=== PATIENT | male | born 1970 | race Caucasian/White ===

== ENCOUNTER 2018-12-08 16:12 | Emergency (ER) | payer OTHER ==
[~2018-12-08] VITALS: Ht 175.3 cm; Wt 70.3 kg
[~2018-12-08 16:12] MED LIST: ACET325 PO; ALBU90OI6 INH; AMOCLA875 PO; ANTOXYBENA LEFTEAR; ASPI81CH PO; ATOR20 PO; Bactrim Ds Tab1 EACH PO; CALCA500CH PO; CEPH500 PO; CLON1 PO; Cipro500 MG PO; Ciprodex Otic7.5 ML LEFTEAR; Clonazepam1 MG; DIPH50 PO; FLUO10 PO; GABA100; GABA300; GABA300 PO; GLIP10 PO; GLIP2.5ER PO; GLIP5 PO; HYDCOR1TO TOP; Haldol5 MG/1 ML IJ; IBUP400 PO; INSDET100 INJ; INSDET100 SC; METF500 PO; Metformin HCl1000 MG; NEBI5 PO; NICO21TP TOP; Neurontin 300300 MG PO; OXYC10TA19 PO; Omeprazole20 M1 PO; PHENY100ER PO; Pepcid40 MG PO; Prednisone20 MG PO; Ultram50 MG PO; XARELTO20 MG PO; ZIPR20 PO; ZIPR40 PO; ZIPR60 PO
[2018-12-08] MEDS ORDERED: GABA400 PO (16:38)
[2018-12-08] MEDS ORDERED: BUPR100 PO (16:38)
[2018-12-08] MEDS ORDERED: ATOR20 PO (16:39)
[2018-12-08] MEDS ORDERED: Bactrim Ds Tab1 EACH PO (16:53)
[2018-12-08] MEDS ORDERED: Mupirocin22 GM TOP (16:53)
[2018-12-08] MEDS ORDERED: CEPH500 PO (16:53)
== END 2018-12-08 17:03 | disposition home or self-care (01) ==
LOC: ER 16:12
DX: L02.416 Cutaneous abscess of left lower limb (principal); L03.116 Cellulitis of left lower limb; Z79.899 Other long term (current) drug therapy; Z79.4 Long term (current) use of insulin; E11.9 Type 2 diabetes mellitus without complications; F17.200 Nicotine dependence, unspecified, uncomplicated
CPT/HCPCS: 82947; 99283

== ENCOUNTER 2019-03-18 01:28 | Inpatient (IN) | payer OTHER ==
[~2019-03-18] VITALS: Ht 177.8 cm; Wt 71.2 kg
[~2019-03-18 01:28] MED LIST changes: +BUPR100 PO; +GABA400 PO; +Mupirocin22 GM TOP
[2019-03-18 02:04] LABS: BASOPHILS ABSOLUTE AUTO 0.05 K/mm3 (0.00-0.23); BASOPHILS PERCENT AUTO 0 % (0-2); EOSINOPHILS ABSOLUTE AUTO 0.21 K/mm3 (0.00-0.68); EOSINOPHILS PERCENT AUTO 2 % (0-6); Hematocrit 35.2 % (37.0-53.0); Hemoglobin 11.5 g/dL (13.5-17.5); IMMATURE GRAN ABSOLUTE AUTO 0.09 K/mm3 (0.00-0.10); IMMATURE GRAN PERCENT AUTO 1 % (0-1); LYMPHOCYTES ABSOLUTE AUTO 1.63 K/mm3 (0.84-5.20); LYMPHOCYTES PERCENT AUTO 12 % (21-46); MONOCYTES ABSOLUTE AUTO 1.07 K/mm3 (0.16-1.47); MONOCYTES PERCENT AUTO 8 % (4-13); Mean Corpuscular HGB 28.6 pg (26.0-34.0); Mean Corpuscular HGB Conc 32.7 g/dL (31.5-36.5); Mean Corpuscular Volume 88 fL (80-100); Mean Platelet Volume 8.5 fL (9.1-12.4); NEUTROPHILS ABSOLUTE AUTO 10.79 K/mm3 (1.96-9.15); NEUTROPHILS PERCENT AUTO 78 % (41-73); Platelet Count 602 K/mm3 (150-400); RDW Standard Deviation 48.6 fL (35.1-46.3); Red Blood Cell Count 4.02 M/mm3 (4.30-5.90); White Blood Cell Count 13.84 K/mm3 (4.00-11.30)
[2019-03-18 02:23] LABS: Alanine Aminotransfer (ALT/SGP 15 U/L (12-78); Albumin, Blood 2.5 g/dL (3.4-5.0); Albumin/Globulin Ratio 0.5 (0.8-1.8); Alk Phos 127 U/L (50-136); Anion Gap 7 mmol/L (6-16); Aspartate Aminotrans (AST/SGOT 7 U/L (12-37); Bilirubin, Total 0.2 mg/dL (0.1-1.0); Blood Urea Nitrogen 16 mg/dL (8-24); Bun/Creatinine Ratio 23.5 (12.0-20.0); CO2, Blood 30 mmol/L (21-32); Calcium, Blood 9.1 mg/dL (8.5-10.1); Chloride, Blood 97 mmol/L (98-108); Creatinine, Blood 0.68 mg/dL (0.60-1.20); Globulin, Blood 4.7 g/dL (2.2-4.0); Glomerular Filtration Rate >60 (60-); Glucose, Blood 260 mg/dL (70-99); Potassium, Blood 3.9 mmol/L (3.5-5.5); Sodium, Blood 134 mmol/L (136-145); Total Protein, Blood 7.2 g/dL (6.4-8.2)
[2019-03-18 02:26] LABS: Body Fluid Crystals NEG (NEGATIVE)
[2019-03-18 02:31] LABS: RBC Count, Synovial Fluid 10000 /mm3 (0-0)
[2019-03-18 02:39] LABS: WBC Count, Synovial Fluid 11706 /mm3 (0-180)
[2019-03-18 02:59] LABS: Lymphs, Synovial Fluid 2 % (0-15); Monocytes/Macrophages, Synovia 2 % (0-65); Neutrophils, Synovial Fluid 96 % (0-24)
[2019-03-18 03:00] LABS: Appearance, Synovial Fluid Hazy (Clear); Color, Synovial Fluid Yellow (None-P Yel)
[2019-03-18] MEDS ORDERED: ASPI81CH PO (14:54)
[2019-03-18] MEDS ORDERED: LISI5 PO (14:55)
[2019-03-18] MEDS ORDERED: GLIM2 PO (15:00)
[2019-03-18] MEDS ORDERED: CEPH500 PO (15:03)
[2019-03-18] MEDS ORDERED: OXYC5 PO (15:05)
--- NOTE | 2019-03-18 18:29 | NUR ---
SHIFT SUMMARY PATIENT RECIEVED AN I&D AT BEDSIDE. DRESSING WRAPPED BY DR. TROCNOSO. PATIENT HAS SLEPT ON AND OFF THIS SHIFT. MINIMAL COMPLAINTS OF PAIN. MEDICATED WITH PO TYLENOL. PATIENT ATE THE ENTIRITY OF HIS DINNER TONIGHT.
[2019-03-19 03:16] LABS: Vancomycin, Trough 15.2 ug/mL (5.0-10.0)
--- NOTE | 2019-03-19 03:57 | NUR ---
RESTING QUIETLY WITH INTERMITTENT AWAKENINGS. SAID AWAKENINGS INCLUDED COMPLAINTS OF PAIN, AND"HEARTBURN". PHOTOGRAPHIC SUPERVISOR MDS NOTIFIED, ORDERS OBTAINED FOR TUMS X 1, GIVEN. AND TRAMADOL 100 MG Q 8 HR PRN. MEDS GIVEN, MEDS EFECTIVE. CALL LIGHT IN REACH. IV ANTIBIOTICS INFUSING. DRESSING OF RIGHT ELBOW INTACT.
--- NOTE | 2019-03-19 16:45 | NUR ---
SHIFT SUMMARY- PT A/O. PT ARM VERY PAINFUL, MEDICATED PER AUG. DR TRONCOSO IN TO CHANGE DRESSING. NPO AFTER MIDNIGHT FOR POSS. PROCEDURE TOMORROW. PT REPORTED HEARTBURN AND REQUESTED TUMS. ORDER PLACED PER DR. PANDA.
--- NOTE | 2019-03-20 00:56 | NUR ---
PT CURRENTLY NOP FOR POTENTIAL I AND D OF RIGHT ARM IN THE AM. VOICED UNDERSTANDING. CALL LIGHT IN REACH.
--- NOTE | 2019-03-20 04:47 | NUR ---
NPO SINCE 0000 FOR ANOTHER I AND D IN THE OR TODAY. PAIN OF RIGHT ELBOW CONTINUES, HAVING RECEIVED ANALGESICS ORDERED - SEE MAR FOR DETAILS. ANTIBIOTICS CONTINUE. CALL LIGHT IN REACH.
[2019-03-20 04:52] LABS: BASOPHILS ABSOLUTE AUTO 0.04 K/mm3 (0.00-0.23); BASOPHILS PERCENT AUTO 0 % (0-2); EOSINOPHILS PERCENT AUTO 4 % (0-6); Hematocrit 37.5 % (37.0-53.0); Hemoglobin 12.1 g/dL (13.5-17.5); IMMATURE GRAN ABSOLUTE AUTO 0.08 K/mm3 (0.00-0.10); IMMATURE GRAN PERCENT AUTO 1 % (0-1); LYMPHOCYTES ABSOLUTE AUTO 1.69 K/mm3 (0.84-5.20); LYMPHOCYTES PERCENT AUTO 15 % (21-46); MONOCYTES ABSOLUTE AUTO 0.77 K/mm3 (0.16-1.47); MONOCYTES PERCENT AUTO 7 % (4-13); Mean Corpuscular HGB Conc 32.3 g/dL (31.5-36.5); Mean Corpuscular Volume 87 fL (80-100); Mean Platelet Volume 8.5 fL (9.1-12.4); NEUTROPHILS ABSOLUTE AUTO 8.27 K/mm3 (1.96-9.15); NEUTROPHILS PERCENT AUTO 74 % (41-73); Platelet Count 634 K/mm3 (150-400); RDW Coefficient Variation 14.8 % (11.7-14.2); RDW Standard Deviation 47.7 fL (35.1-46.3); Red Blood Cell Count 4.32 M/mm3 (4.30-5.90); White Blood Cell Count 11.25 K/mm3 (4.00-11.30)
[2019-03-20 05:15] LABS: Anion Gap 3 mmol/L (6-16); Blood Urea Nitrogen 22 mg/dL (8-24); Bun/Creatinine Ratio 30.5 (12.0-20.0); CO2, Blood 30 mmol/L (21-32); Calcium, Blood 8.5 mg/dL (8.5-10.1); Chloride, Blood 100 mmol/L (98-108); Creatinine, Blood 0.72 mg/dL (0.60-1.20); Glomerular Filtration Rate >60 (60-); Glucose, Blood 207 mg/dL (70-99); Potassium, Blood 4.3 mmol/L (3.5-5.5); Sodium, Blood 133 mmol/L (136-145)
--- NOTE | 2019-03-20 13:51 | NUR ---
Patient is lying in bed and alert. Patient immediately tells me about his medical issues and his social struggles (including homelessness at times). Patient tells me of the recent of his mom and step father. He gives me a life and family review. I also explore patient's islam beliefs. I listen empathically and provide pastoral chromosomal disorders counselor, grief support and prayer. Patient responds well and shows signs of restored brittney. I will continue to remian available to patient and family.
--- NOTE | 2019-03-20 14:41 | NUR ---
PT C/O LOW BLOOD SUGAR, CHECKED. IS 54. HONEY AND JUICE, SANDWICH GIVEN.
--- NOTE | 2019-03-20 17:39 | NUR ---
PT PAIN MANAGED TOLERABLY WITH AVAIL MEDS. HAS BEEN OUT TO SMOKE, BOTH TIMES RETURNS FEELS SOME LIGHT HEADED, STATED FELT NOT RIGHT. 14:30 CBG CHECK REVEALED 54. GIVEN HONEY, APPLE JUICE X2, SANDWICH. PT RECOVERED QUICKLY TO >90. VSS. SECOND TIME. CBG 109. REQUESTED PT STAY TO ROOM. AGREED. NO OTHER CONCERNS AT THIS TIME. BED IN LOW [id number], CALL LITE IN REACH, CALLS APPRIOP
--- NOTE | 2019-03-20 22:53 | NUR ---
DRESSING CHANGE DRESSING CHANGE TO R ELBOW I/D SITE. PRIOR DRESSING CAME LOOSE AND WAS "PULLING" CAUSING PT GREAT DEAL OF PAIN. DRSG CHANGE SITE NOW C/D/I.
--- NOTE | 2019-03-21 06:08 | NUR ---
SHIFT SUMMARY PT NPO SINCE MIDNIGHT FOR POSS I/D OF R ELBOW ABSCESS. REDRESSED SITE 2X PT IS ITCHING UNDER DRESSING CAUSING IT TO COME LOOSE. EDUCATED PT TO NOT ITCH DRESSING IT COULD CAUSE INTRODUCTION OF INFECTION. SITE IS C/D/I, APPEARS WNL. PO TRAMADOL GIVEN TWICE FOR PAIN, TYLENOL GIVEN ONCE. PT IS AMBULATORY AND GOES OUT TO SMOKE SEVERAL TIMES. WILL CONT TO MONITOR AND PROVIDE CARE UNTIL PRESUMED BY ONCOMING RN.
--- NOTE | 2019-03-21 07:20 | NUR ---
PT C/O PAIN, DISCUSSED WITH DR SARKAR. WILL MONITOR. WILL REVIEW MEDS. A/O. PENDING DR LOPEZ TO SEE ARM FOR POSS I&D THIS AM. PT NPO. H/R REG, NO MURMER NOTED. NO TELE. LUNGS WHEEZY T/O. RESP EASY, UNLABORED. ON R.A. BT X4 LAST BM 3 DAYS. VOIDS PER BATHROOM. INDEPENDANT IN ROOM. ALSO GOES OUT TO SMOKE REGULARLY. BED IN LOW POSITION, CALL LITE IN REACH. CALLS APPROP
--- NOTE | 2019-03-21 09:30 | NUR ---
DR SOTO IN ROOM. NO SURG TODAY. WILL REVIEW TOMORROW. POSS ORDER MRI.
--- NOTE | 2019-03-21 18:17 | NUR ---
PT JUST BEING TAKEN FOR MRI. REDIOLOGY TECH STATES WILL BE CHECKING EYES FIRST FOR SAFETY FOR MRI/ PT STATES PAIN MED WORKING MUCH BETTER TODAY. CHANGE HELPED. NO OTHER CONCERNS AT THIS TIME. BED IN LOW POSITION, RUDDY LITE IN REACH, CALLS APPROP. WALKS OUT TO SMOKE REGULARLY BETWEEN ANTIBOITICS.
--- NOTE | 2019-03-21 19:26 | NUR ---
DAY RN REPORTS PATIENT STILL OUT OF ROOM FOR MRI.
--- NOTE | 2019-03-21 19:44 | NUR ---
PATIENT BACK FROM MRI. REPORTS WANTS TO GO OUTSIDE AND REQUEST PAIN MED WHEN HE GETS BACK.
--- NOTE | 2019-03-21 21:46 | NUR ---
PATIENT WAS BACK IN ROOM AND IV ABX INFUSED AND MEDICATIONS GIVEN PER EMAR. PATIENT BACK OUTSIDE.
--- NOTE | 2019-03-21 22:48 | NUR ---
PATIENT IN ROOM AND REQUEST SHOWER. DEDICATED OWNER OPERATOR WILL SET UP SHOWER.
--- NOTE | 2019-03-22 03:07 | NUR ---
SHIFT SUMMARY PATIENT HAD NO ACUTE CHANGES OBSERVED. AXOX 3 AND INDEPENDENT GOING OUTSIDE TO SMOKE T/O THE SHIFT. PIV REMAINS INTACT. IV ABXS INFUSED. CBG 185. PERCOCET GIVEN PER EMAR FOR RIGHT ARM PAIN. DENIES SOB AND N/V. PATIENT PULLED ELBOW DRESSING CHANGE OFF X THREE WHEN TAKING JACKET OFF. DRESSING CHANGED C/D/I. PATIENT REQUESTED SHOWER, CLOTHES WASHED, AND PHONE CHARGE. ALL THREE COMPLETE. NPO AFTER MIDNIGHT. CALL LIGHT IN REACH. BED IN LOWEST POSITION. WILL CONTINUE TO MONITOR UNTIL DAY SHIFT NURSE ASSUMES CARE.
[2019-03-22 04:21] LABS: BASOPHILS ABSOLUTE AUTO 0.06 K/mm3 (0.00-0.23); BASOPHILS PERCENT AUTO 1 % (0-2); EOSINOPHILS PERCENT AUTO 4 % (0-6); Hemoglobin 12.1 g/dL (13.5-17.5); IMMATURE GRAN PERCENT AUTO 1 % (0-1); LYMPHOCYTES ABSOLUTE AUTO 1.96 K/mm3 (0.84-5.20); LYMPHOCYTES PERCENT AUTO 16 % (21-46); MONOCYTES PERCENT AUTO 6 % (4-13); Mean Corpuscular HGB 27.8 pg (26.0-34.0); Mean Corpuscular HGB Conc 31.8 g/dL (31.5-36.5); Mean Corpuscular Volume 87 fL (80-100); Mean Platelet Volume 8.3 fL (9.1-12.4); NEUTROPHILS ABSOLUTE AUTO 8.67 K/mm3 (1.96-9.15); NEUTROPHILS PERCENT AUTO 72 % (41-73); Platelet Count 762 K/mm3 (150-400); RDW Standard Deviation 48.4 fL (35.1-46.3); Red Blood Cell Count 4.36 M/mm3 (4.30-5.90); White Blood Cell Count 11.99 K/mm3 (4.00-11.30)
[2019-03-22 04:46] LABS: Anion Gap 4 mmol/L (6-16); Blood Urea Nitrogen 35 mg/dL (8-24); Bun/Creatinine Ratio 39.6 (12.0-20.0); CO2, Blood 31 mmol/L (21-32); Calcium, Blood 8.8 mg/dL (8.5-10.1); Chloride, Blood 100 mmol/L (98-108); Creatinine, Blood 0.88 mg/dL (0.60-1.20); Glomerular Filtration Rate >60 (60-); Glucose, Blood 125 mg/dL (70-99); Potassium, Blood 4.4 mmol/L (3.5-5.5); Sodium, Blood 135 mmol/L (136-145)
--- NOTE | 2019-03-22 08:08 | NUR ---
IV ANTIBIOTICS STOPPED PATIENT WANTS TO GO OUTSIDE TO SMOKE.
--- NOTE | 2019-03-22 08:33 | NUR ---
HOOKED UP TO ANTIBIOTICS AFTER RETURNING FROM OUTSIDE
--- NOTE | 2019-03-22 09:30 | NUR ---
OUTSIDE TO SMOKE
--- NOTE | 2019-03-22 09:54 | NUR ---
BACK FROM SMOKE
--- NOTE | 2019-03-22 13:42 | NUR ---
OUTSIDE FOR SMOKE
--- NOTE | 2019-03-22 13:50 | NUR ---
ALERT. ORIENTED. OUTSIDE TO SMOKE OFTEN. MEDICATED X ONE FOR PAIN THEN TO DAY SURGERY. WOUND RT ARM REWRAPPED X ONE. COOPERATIVE. LUNGS WHEEXEY TO COARSE T/O. ABRASIONS TO LEGS FROM "LOOSING PANTS AND RUNNING THRU THORNS". NO ACUTE CHANGES
--- NOTE | 2019-03-22 14:18 | NUR ---
AFTER PATIENT WALKS OUT FOR SMOKE, DAY SURGERY COMES UP TO GET PATIENT. THEY TAKE A GOWN AND GO TO GET PATIENT FOR SURGERY. NOTE SENT TO PHARMACY TO SEND NEXT 2 ANTIBIOTICS TO DAY SURGERY.
--- NOTE | 2019-03-22 15:25 | NUR ---
03/22/19 1525 Farzaneh Gupta PT RECIEVED SCHEDULED ANTIBIOTICS IN OR ORDERED.
--- NOTE | 2019-03-22 16:44 | NUR ---
REPORT TO [facility].
--- NOTE | 2019-03-22 17:39 | NUR ---
RECIEVED PT POST OP: PT IS DROWSY, BUT ORIENTED, VSS. ABLE TO DO ASSESSMENT AND ONE VITAL SIGN SET BUT THEN PT PERSISTANT ON GETTING UP, TRYING TO VOID, GETTING DRESSED, WANTING FOOD, AND WANTING TO GO OUT TO SMOKE. PT IS STILL DROWSY AND WAKING UP AND AT TIMES UNSTEADY ON FEET. PT ENCOURAGE TO SIT DOWN AND LET STAFF HELP WHICH HE REFUSED BLANTANTLY. THIS RN CONCERNED OF FALL AND EXTRA STAFF CALLED INTO ROOM. KIM, MARKETING MGR AT PT BEDSIDE AND CONVINCED PT TO SIT WHILE PUTTING ON UNDERWEAR INSTEAD OF STAND, THIS RN HELPED PT WITH PANTS AND NON SKID SOCKS. PT PROCEEDED TO PUT ON SHOES AND STATES THAT HE NEEDS TO GO OUT TO SMOKE. THIS RN ADVISED PT NOT TO DO THIS AND PAGE MADE TO DR. SARKAR TO MAKE AWARE. KIM KEITH, ABLE TO CONVINCE PT TO EAT SOME FOOD AND GET ANOTHER SET OF VITALS BEFORE PT LEFT UNIT WITH WHEELCAIR TO SMOKE. WILL AWAIT CALL FROM DR. SARKAR
--- NOTE | 2019-03-22 17:53 | NUR ---
PT LEFT UNIT PUSHING WHEELCHAIR AT 1750
--- NOTE | 2019-03-22 19:21 | NUR ---
SPOKE WITH DR. SARKAR CONCERNING PT NONCOMPLIANCE AT ABOUT 1815. WILL CTM PT STATUS
--- NOTE | 2019-03-22 19:23 | NUR ---
PT BACK TO ROOM AT ABOUT 1835, PT IS ROCKING BODY AND GROANING IN PAIN. PT GIVEN PAIN MEDS, SEE EMAR, AND ENCOURAGED TO ELEVATE R ARM AND REST. PT COMPLIANT SIT IN BED WITH ARM ELEVATED AND TO HAVE CBG CHECKED AND VITAL SIGNS TAKEN. PT ABLE TO VOID. MIYA WRAP AT SURGICAL SITE RE-WRAPED, PT CLAIMED IT WAS "TOO TIGHT", SITE NOW WNL. NO ACUTE SAFETY CONCERNS AT THIS TIME. REPORT GIVEN TO ELENA GODDARD RN.
[2019-03-23 04:33] LABS: BASOPHILS ABSOLUTE AUTO 0.02 K/mm3 (0.00-0.23); BASOPHILS PERCENT AUTO 0 % (0-2); EOSINOPHILS PERCENT AUTO 0 % (0-6); Hematocrit 33.4 % (37.0-53.0); Hemoglobin 10.7 g/dL (13.5-17.5); IMMATURE GRAN PERCENT AUTO 1 % (0-1); LYMPHOCYTES ABSOLUTE AUTO 0.99 K/mm3 (0.84-5.20); LYMPHOCYTES PERCENT AUTO 6 % (21-46); MONOCYTES ABSOLUTE AUTO 0.55 K/mm3 (0.16-1.47); MONOCYTES PERCENT AUTO 4 % (4-13); Mean Corpuscular HGB 28.2 pg (26.0-34.0); Mean Corpuscular Volume 88 fL (80-100); Mean Platelet Volume 8.6 fL (9.1-12.4); NEUTROPHILS ABSOLUTE AUTO 13.79 K/mm3 (1.96-9.15); NEUTROPHILS PERCENT AUTO 89 % (41-73); Platelet Count 772 K/mm3 (150-400); RDW Standard Deviation 48.9 fL (35.1-46.3); White Blood Cell Count 15.45 K/mm3 (4.00-11.30)
[2019-03-23 05:00] LABS: Anion Gap 6 mmol/L (6-16); Blood Urea Nitrogen 40 mg/dL (8-24); Bun/Creatinine Ratio 43.1 (12.0-20.0); CO2, Blood 29 mmol/L (21-32); Calcium, Blood 8.7 mg/dL (8.5-10.1); Chloride, Blood 94 mmol/L (98-108); Creatinine, Blood 0.93 mg/dL (0.60-1.20); Glomerular Filtration Rate >60 (60-); Glucose, Blood 450 mg/dL (70-99); Magnesium, Blood 2.1 mg/dL (1.6-2.4); Potassium, Blood 5.7 mmol/L (3.5-5.5); Sodium, Blood 129 mmol/L (136-145)
--- NOTE | 2019-03-23 05:41 | NUR ---
SHIFT SUMMARY LYING IN SEMI FOWLERS WITH EYES CLOSED. HAS BEEN AWAKE AND OUT OF ROOM TO GO SMOKE FOR MOST OF THE SHIFT. CONTINUED TO REQUEST THINGS TO EAT THROUGHOUT SHIFT. PT WAS GIVEN MULTIPLE SERVINGS OF SANDWICHES, COFFEE, COCOA (NO SUGAR ADDED VARIETY), SOUP, AND JELLO PER HIS REQUEST, STATED HE WAS STARVING. MEDICATED FOR PAIN X1 THIS SHIFT. ONCE PT WAS INFOMRED THAT THERE WOULD BE NO MORE FOOD SERVED TO HIM THIS SHIFT AROUND 4 AM HE THEN LAYED DOWN AND FELL ASLEEP. STATES HE WANTS TO GO HOME TODAY AND DIDN'T EVEN KNOW THAT HE WAS GOING TO BE STAYING THE NIGHT. RIGHT HAND WAS COOL TO TOUCH WITH CAP REFILL OF < 3 SEC AT START OF SHIFT. AT MIDNIGHT HAND WAS WARM TO TOUCH. SAFETY MEASURES IN PLACE. DENIES FURTHER NEEDS AT THIS TIME. WILL GIVE HAND OFF TO ONCOMING SHIFT USING SBAR.
--- NOTE | 2019-03-23 07:05 | NUR ---
recvd report from previous shift RN Robyn, pt sleeping in bed, call light within reach, bed rails up x 2, bed in lowest position
--- NOTE | 2019-03-23 16:50 | NUR ---
pt outside to smoke x 4 this shift. pt returns smelling of marijuana strongly. questioned pt who denies smoking marijuana, states "that's my jacket" indicating the smell.
--- NOTE | 2019-03-23 17:20 | NUR ---
pt outside to smoke. this RN requested pt return to room within 20 min per hospital policy.
--- NOTE | 2019-03-23 18:20 | NUR ---
pt returned to room, was outside >60 min, smells strongly of marijuana, denies smoking marijuana. pt in the bathroom currently
--- NOTE | 2019-03-23 18:40 | NUR ---
pt in the bathroom for >20 minutes.
--- NOTE | 2019-03-23 18:49 | NUR ---
shift summary: vss, no acute changes. pt's CBG highest of 418. pt continues to request high carb snacks. provided pt with protein rich snacks, (cheese, meat) as well as ADA diet. pt states he is "starving". educated pt on ADA diet. MD notified of pt's CBG, orders received. pt returns from trips outside repeatedly smelling of marijuana. pt voiding, tolerating PO intake. Pain controlled per AUG. Dr Triana, Dr Wolff, Dr Patel all rounded on pt today. steam frame operator provided community resources for pt. pt received IV ABX tx this shift, peripheral IV remains patent, flushes well.
--- NOTE | 2019-03-23 18:49 | NUR ---
pt sleeping on bed
[2019-03-24 04:22] LABS: BASOPHILS ABSOLUTE AUTO 0.07 K/mm3 (0.00-0.23); BASOPHILS PERCENT AUTO 0 % (0-2); EOSINOPHILS ABSOLUTE AUTO 0.46 K/mm3 (0.00-0.68); EOSINOPHILS PERCENT AUTO 3 % (0-6); Hematocrit 32.4 % (37.0-53.0); Hemoglobin 10.3 g/dL (13.5-17.5); IMMATURE GRAN ABSOLUTE AUTO 0.07 K/mm3 (0.00-0.10); IMMATURE GRAN PERCENT AUTO 0 % (0-1); LYMPHOCYTES ABSOLUTE AUTO 3.28 K/mm3 (0.84-5.20); LYMPHOCYTES PERCENT AUTO 20 % (21-46); MONOCYTES ABSOLUTE AUTO 0.96 K/mm3 (0.16-1.47); MONOCYTES PERCENT AUTO 6 % (4-13); Mean Corpuscular HGB 28.3 pg (26.0-34.0); Mean Corpuscular HGB Conc 31.8 g/dL (31.5-36.5); Mean Corpuscular Volume 89 fL (80-100); Mean Platelet Volume 8.3 fL (9.1-12.4); NEUTROPHILS ABSOLUTE AUTO 11.31 K/mm3 (1.96-9.15); NEUTROPHILS PERCENT AUTO 70 % (41-73); Platelet Count 747 K/mm3 (150-400); RDW Coefficient Variation 15.2 % (11.7-14.2); RDW Standard Deviation 50.8 fL (35.1-46.3); Red Blood Cell Count 3.64 M/mm3 (4.30-5.90); White Blood Cell Count 16.15 K/mm3 (4.00-11.30)
[2019-03-24 04:41] LABS: Anion Gap 5 mmol/L (6-16); Blood Urea Nitrogen 35 mg/dL (8-24); Bun/Creatinine Ratio 39.5 (12.0-20.0); CO2, Blood 30 mmol/L (21-32); Calcium, Blood 8.8 mg/dL (8.5-10.1); Chloride, Blood 102 mmol/L (98-108); Creatinine, Blood 0.89 mg/dL (0.60-1.20); Glomerular Filtration Rate >60 (60-); Glucose, Blood 145 mg/dL (70-99); Potassium, Blood 4.7 mmol/L (3.5-5.5); Sodium, Blood 137 mmol/L (136-145)
--- NOTE | 2019-03-24 06:31 | NUR ---
SUMMARY NO ACUTE CHANGES NOTED FROM ASSESSMENT. PT CONTINUES TO GO OUTSIDE FREQUENTLY TO 'SMOKE'. PT ENC TO KEEP HIS ARM IN HIS SLING WHILE OOB & ELEVATED WHILE IN BED, HE IS NON COMPLIANT. PT HAS ASKED FOR MULTIPLE SNACK ITEMS THROUGHT THE NIGHT. DIABETIC WOUND HEALING EDUCATION WAS PROVIDED, PT WAS NON RECEPTIVE. PT BECAME ANGRY AND STARTED TO YELL AND TRACK ME DOWN IN THE HALLS. CHARGE NURSE WAS NOTIFIED AND ASKED SPEAK WITH PT. CALL LIGHT REMAINS IN REACH
--- NOTE | 2019-03-24 18:00 | NUR ---
PATIENT WITH FREQUENT TRIPS OUTSIDE TO SMOKE AND REPORTS INCREASE IN RIGHT ELBOW PAIN AFTER ACTIVITY. PATIENT TEACHING PROVIDED ON NEED TO WEAR SLING ON RIGHT ARM AND ELEVATE,. DISCUSSED WITH PATIENT SMOKING CESSATION AND PATIENT DECLINES INFORMATION AT THIS TIME. PATIENT SLEEPS WHEN UNDISTURBED. MIYA DRESSING DRY AND INTACT TO RIGHT ELBOW
[2019-03-25 03:07] LABS: HBSAG SCREEN Negative (Negative); HEP B CORE AB, TOT Negative (Negative); HEP C VIRUS AB <0.1 (0.0-0.9); HIV SCREEN 4TH GENERATION WRFX Non Reactive (Non Reactive)
[2019-03-25 04:22] LABS: BASOPHILS ABSOLUTE AUTO 0.06 K/mm3 (0.00-0.23); BASOPHILS PERCENT AUTO 1 % (0-2); EOSINOPHILS ABSOLUTE AUTO 0.31 K/mm3 (0.00-0.68); EOSINOPHILS PERCENT AUTO 2 % (0-6); Hematocrit 31.7 % (37.0-53.0); Hemoglobin 10.4 g/dL (13.5-17.5); IMMATURE GRAN ABSOLUTE AUTO 0.06 K/mm3 (0.00-0.10); IMMATURE GRAN PERCENT AUTO 1 % (0-1); LYMPHOCYTES ABSOLUTE AUTO 2.18 K/mm3 (0.84-5.20); LYMPHOCYTES PERCENT AUTO 17 % (21-46); MONOCYTES ABSOLUTE AUTO 1.25 K/mm3 (0.16-1.47); MONOCYTES PERCENT AUTO 10 % (4-13); Mean Corpuscular HGB Conc 32.8 g/dL (31.5-36.5); Mean Platelet Volume 8.3 fL (9.1-12.4); NEUTROPHILS ABSOLUTE AUTO 9.15 K/mm3 (1.96-9.15); NEUTROPHILS PERCENT AUTO 70 % (41-73); Platelet Count 713 K/mm3 (150-400); RDW Coefficient Variation 15.3 % (11.7-14.2); RDW Standard Deviation 46.9 fL (35.1-46.3); Red Blood Cell Count 3.71 M/mm3 (4.30-5.90); White Blood Cell Count 13.01 K/mm3 (4.00-11.30)
[2019-03-25 04:24] LABS: Mean Corpuscular Volume 85 fL (80-100)
[2019-03-25 04:44] LABS: Anion Gap 4 mmol/L (6-16); Blood Urea Nitrogen 32 mg/dL (8-24); Bun/Creatinine Ratio 41.8 (12.0-20.0); CO2, Blood 30 mmol/L (21-32); Calcium, Blood 8.7 mg/dL (8.5-10.1); Chloride, Blood 99 mmol/L (98-108); Creatinine, Blood 0.77 mg/dL (0.60-1.20); Glomerular Filtration Rate >60 (60-); Glucose, Blood 129 mg/dL (70-99); Magnesium, Blood 1.9 mg/dL (1.6-2.4); Potassium, Blood 4.6 mmol/L (3.5-5.5); Sodium, Blood 133 mmol/L (136-145)
--- NOTE | 2019-03-25 06:26 | NUR ---
SHIFT SUMMARY: ANNY HAS BEEN COMPLAINING OF 7-9/10 PAIN IN HIS RIGHT ELBOW. HE STATES THAT HE FEELS THE PAIN IS WORSE THAN LAST NIGHT. CAPILLARY REFILL <3 SECONDS IN ALL FINGERS ON HIS RIGHT HAND. SEVERAL TIMES THIS SHIFT HE HAS REQUESTED PAIN MEDICATION AND BEEN RESTING WITH HIS EYES CLOSED AND SNORING RESPIRATIONS WHEN THIS NURSE RETURNED WITH REQUESTED MEDICATION. HE IS ABLE TO MAKE HIS NEEDS KNOWN. VSS. HE HAS GONE OUTSIDE TO SMOKE MULTIPLE TIMES THIS SHIFT. IV TO L UA PATENT. HE DOES STATE THAT THE TORADOL AND PERCOCET ARE EFFECTIVE.
--- NOTE | 2019-03-25 10:08 | NUR ---
PATIENT TELLS ME HE WIS GOING OUT TO SMOKE
--- NOTE | 2019-03-25 11:09 | NUR ---
1030 dr boateng here to see patient,Ariane Hare RN present at bedside while dr boateng removed dressing and drains from right elbow, cleansed and reapplied gauze and honorio wrap. per Ariane wound without redness or drainage.
--- NOTE | 2019-03-25 12:21 | NUR ---
1155 iv antibiotic due, pt states he is going out to smoke before hooked to iv. patient educated on need to receive antibiotics aas scheduled. pt requests that he still wishes to go outside and will not stay long
--- NOTE | 2019-03-25 18:08 | NUR ---
SUMMARY FREQUENTLY OUT OF ROOM TO SMOKE FOR UP TO 1 HOUR AT A TIME. RIGHT ELBOW MIYA WRAP LOOSENED PER PATIENT REQUEST, GAUZE DRESSING DRY AND INTACT. PATIENT REPORTS 6=10 LEVEL PAIN TO LEFT ELBOW THROUGHOUT SHIFT. PATIENT TELLS ME THE PLAN WILL BE FOR HIM TO DISCHARGE TOMORROW AND A FAMILY MEMBER IS PAYING FOR A MONTH OR TWO AT THE [employer].
--- NOTE | 2019-03-26 04:11 | NUR ---
BANDAGE REWRAPPED MIYA WRAP ON RIGHT ELBOW PER PATIENT REQUEST.
[2019-03-26 04:18] LABS: BASOPHILS ABSOLUTE AUTO 0.08 K/mm3 (0.00-0.23); BASOPHILS PERCENT AUTO 1 % (0-2); EOSINOPHILS ABSOLUTE AUTO 0.33 K/mm3 (0.00-0.68); EOSINOPHILS PERCENT AUTO 3 % (0-6); Hematocrit 32.7 % (37.0-53.0); Hemoglobin 10.7 g/dL (13.5-17.5); IMMATURE GRAN ABSOLUTE AUTO 0.06 K/mm3 (0.00-0.10); IMMATURE GRAN PERCENT AUTO 1 % (0-1); LYMPHOCYTES ABSOLUTE AUTO 2.53 K/mm3 (0.84-5.20); LYMPHOCYTES PERCENT AUTO 25 % (21-46); MONOCYTES ABSOLUTE AUTO 1.03 K/mm3 (0.16-1.47); MONOCYTES PERCENT AUTO 10 % (4-13); Mean Corpuscular HGB 28.7 pg (26.0-34.0); Mean Corpuscular HGB Conc 32.7 g/dL (31.5-36.5); Mean Platelet Volume 8.4 fL (9.1-12.4); NEUTROPHILS PERCENT AUTO 60 % (41-73); Platelet Count 731 K/mm3 (150-400); RDW Coefficient Variation 15.3 % (11.7-14.2); RDW Standard Deviation 49.2 fL (35.1-46.3); Red Blood Cell Count 3.73 M/mm3 (4.30-5.90); White Blood Cell Count 10.13 K/mm3 (4.00-11.30)
[2019-03-26 04:19] LABS: Mean Corpuscular Volume 88 fL (80-100)
--- NOTE | 2019-03-26 04:31 | NUR ---
SHIFT SUMMARY POD4 I&D RIGHT ELBOW ABCESS PT [id number], VSS. PATIENT HAS BEEN PLEASANT TONIGHT, OUTSIDE TO SMOKE MULTIPLE TIMES DURING SHIFT. MEDICATED FOR PAIN X2 WITH ONE PERCOCET. BANDAGE REWRAPPED ON RIGHT ELBOW PER REQUEST. MIYA WRAP CDI. PATIENT KEEPS ARM ELEVATED WHILE SLEEPING. PATIENT COMPLAINED OF "FEELING OFF" DURING THE NIGHT, STATES IT IS NORMAL FOR HIM AT TIMES. PATIENT INDEPENDANT IN ROOM AMBULATING TO RESTROOM.
[2019-03-26 04:33] LABS: Anion Gap 4 mmol/L (6-16); Blood Urea Nitrogen 36 mg/dL (8-24); Bun/Creatinine Ratio 38.1 (12.0-20.0); CO2, Blood 28 mmol/L (21-32); Calcium, Blood 8.3 mg/dL (8.5-10.1); Chloride, Blood 102 mmol/L (98-108); Creatinine, Blood 0.95 mg/dL (0.60-1.20); Glomerular Filtration Rate >60 (60-); Glucose, Blood 192 mg/dL (70-99); Potassium, Blood 4.7 mmol/L (3.5-5.5); Sodium, Blood 134 mmol/L (136-145)
[2019-03-26] MEDS ORDERED: Amoxicillin500 MG PO (10:07)
[2019-03-26] MEDS ORDERED: TRAM50 PO (10:08)
[2019-03-26] MEDS ORDERED: KETO10 PO (10:09)
[2019-03-26] MEDS ORDERED: ACET325 PO (10:46)
[2019-03-26] MEDS ORDERED: ATOR10 PO (10:47)
[2019-03-26] MEDS ORDERED: DOCU100 PO (10:48)
[2019-03-26] MEDS ORDERED: CARV3.125 PO (10:48)
[2019-03-26] MEDS ORDERED: Florastor250 MG PO (10:48)
--- NOTE | 2019-03-26 11:24 | NUR ---
DC'D HOME, DC INSTRUCTIONS GIVEN, VERBALIZED UNDERSTANDING, PT DC'D HOME WITH BELONGINGS AND DRESSING SUPPLIES.
== END 2019-03-26 11:27 | disposition home or self-care (01) | DRG 478 ==
LOC: ER 01:28 → ERHOLD 01:29 → MEDS 01:29 → SURS 03-20 10:43 → MEDS 03-20 10:44 → SURS 03-22 17:00
PROVIDERS: Emergency Medicine; Internal Medicine; Internal Medicine Infectious Disease; Orthopaedic Surgery; ADMIT Hospitalist
PROC: 0RBL0ZZ Excision of Right Elbow Joint, Open Approach (ICD-10-PCS; 2019-03-22)
PROC: 0PBK0ZX Excision of Right Ulna, Open Approach, Diagnostic (ICD-10-PCS; principal; 2019-03-22 16:45)
DX: M00.221 Other streptococcal arthritis, right elbow (principal); L03.113 Cellulitis of right upper limb; M71.121 Other infective bursitis, right elbow; F20.9 Schizophrenia, unspecified; I25.2 Old myocardial infarction; Z79.4 Long term (current) use of insulin; F15.10 Other stimulant abuse, uncomplicated; Z59.0 Homelessness; I25.10 Atherosclerotic heart disease of native coronary artery without angina pectoris; K21.9 Gastro-esophageal reflux disease without esophagitis; E11.42 Type 2 diabetes mellitus with diabetic polyneuropathy; M65.0 Abscess of tendon sheath; F17.210 Nicotine dependence, cigarettes, uncomplicated; M60.9 Myositis, unspecified
CPT/HCPCS: 20605; 36415; 70030; 73201; 73223; 76882; 80048; 80053; 80202; 82550; 82947; 83735; 85025; 85651; 86140; 86317; 86704; 86708; 86803; 87040; 87070; 87071; 87075; 87147; 87205; 87340; 87389; 88305; 88311; 89051; 89060; 94760; 94762; 96365-59; 96366; 96366-59; 96367; 96367-59; 96375; 96375-59; 96376; 97110; 97166; 99285-25; A9270; A9577; G0378; J0690; J1100; J1885; J2250; J2405; J2540; J2704; J3010; J3370; J7030; J7050; J7120; Q9967

== ENCOUNTER 2019-04-14 20:24 | Inpatient (IN) | payer OTHER ==
[~2019-04-14] VITALS: Ht 175.3 cm; Wt 83.1 kg
[~2019-04-14 20:24] MED LIST changes: +ATOR10 PO; +Amoxicillin500 MG PO; +CARV3.125 PO; +DOCU100 PO; +Florastor250 MG PO; +GLIM2 PO; +KETO10 PO; +LISI5 PO; +OXYC5 PO; +TRAM50 PO
[2019-04-14 20:59] LABS: BASOPHILS ABSOLUTE AUTO 0.04 K/mm3 (0.00-0.23); BASOPHILS PERCENT AUTO 1 % (0-2); EOSINOPHILS ABSOLUTE AUTO 0.42 K/mm3 (0.00-0.68); EOSINOPHILS PERCENT AUTO 7 % (0-6); Hematocrit 39.4 % (37.0-53.0); Hemoglobin 12.4 g/dL (13.5-17.5); IMMATURE GRAN ABSOLUTE AUTO 0.02 K/mm3 (0.00-0.10); IMMATURE GRAN PERCENT AUTO 0 % (0-1); LYMPHOCYTES ABSOLUTE AUTO 1.72 K/mm3 (0.84-5.20); LYMPHOCYTES PERCENT AUTO 27 % (21-46); MONOCYTES ABSOLUTE AUTO 0.48 K/mm3 (0.16-1.47); MONOCYTES PERCENT AUTO 7 % (4-13); Mean Corpuscular HGB 27.9 pg (26.0-34.0); Mean Corpuscular HGB Conc 31.5 g/dL (31.5-36.5); Mean Corpuscular Volume 89 fL (80-100); Mean Platelet Volume 8.4 fL (9.1-12.4); NEUTROPHILS PERCENT AUTO 59 % (41-73); Platelet Count 419 K/mm3 (150-400); RDW Coefficient Variation 14.7 % (11.7-14.2); RDW Standard Deviation 47.3 fL (35.1-46.3); Red Blood Cell Count 4.45 M/mm3 (4.30-5.90); White Blood Cell Count 6.48 K/mm3 (4.00-11.30)
[2019-04-14 21:21] LABS: Alanine Aminotransfer (ALT/SGP 32 U/L (12-78); Albumin, Blood 3.2 g/dL (3.4-5.0); Albumin/Globulin Ratio 0.7 (0.8-1.8); Alk Phos 132 U/L (50-136); Anion Gap 3 mmol/L (6-16); Aspartate Aminotrans (AST/SGOT 18 U/L (12-37); Bilirubin, Total 0.3 mg/dL (0.1-1.0); Blood Urea Nitrogen 32 mg/dL (8-24); Bun/Creatinine Ratio 33.9 (12.0-20.0); CO2, Blood 31 mmol/L (21-32); Calcium, Blood 8.9 mg/dL (8.5-10.1); Chloride, Blood 104 mmol/L (98-108); Creatinine, Blood 0.94 mg/dL (0.60-1.20); Globulin, Blood 4.7 g/dL (2.2-4.0); Glomerular Filtration Rate >60 (60-); Glucose, Blood 129 mg/dL (70-99); Potassium, Blood 4.6 mmol/L (3.5-5.5); Sodium, Blood 138 mmol/L (136-145); Total Protein, Blood 7.9 g/dL (6.4-8.2)
[2019-04-15 05:11] LABS: Hematocrit 36.4 % (37.0-53.0); Hemoglobin 11.6 g/dL (13.5-17.5); Mean Corpuscular HGB 27.3 pg (26.0-34.0); Mean Corpuscular HGB Conc 31.9 g/dL (31.5-36.5); Mean Platelet Volume 8.5 fL (9.1-12.4); Platelet Count 391 K/mm3 (150-400); RDW Coefficient Variation 14.7 % (11.7-14.2); RDW Standard Deviation 45.4 fL (35.1-46.3); Red Blood Cell Count 4.25 M/mm3 (4.30-5.90); White Blood Cell Count 5.65 K/mm3 (4.00-11.30)
[2019-04-15 05:12] LABS: Mean Corpuscular Volume 86 fL (80-100)
--- NOTE | 2019-04-15 05:37 | NUR ---
SHIFT SUMMARY NEW ADMIT TO FLOOR @0225 THIS AM. WANTS TO GO OUT TO SMOKE SOON HE CAME TO FLOOR, ASKED PT TO WAIT UNTIL ADMIT WAS COMPLETE. HAS SLURRED SPEECH & NO TEETH. ALERT TO PERSON, PLACE, MONTH FORGOT YEAR STATES "IT MUST BE 2019." FORGETFUL & THOUGHTS ARE ALLOVER, FLIGHT OF IDEAS. WHEN ASKED WHERE WE ARE, HE STATES "FLOATING IN A TEA CUP IN SPACE." ONCE WOKEN HE IS UNABLE TO SIT STILL & IS FIGETING/PACING AROUND ROOM W/VERY UNSTEADY STUMBLING GAIT, WHEN ASKED TO SIT HE GETS IRRITABLE. REPORTS HE HEARS VOICES "ALL DAY EVERYDAY" & OCCASIONALLY HAS VISUAL HALLUCINATIONS. STATES SOMETIMES THE VOICES TELL HIM TO DO THINGS & IT MAKES HIM FEEL SUICIDAL @TIMES, YET DENIES FEELING SUICIDAL @THIS TIME OR HAVING A PLAN. REPORTS 03/12 PAIN R/T CHRONIC BLE NEUROPATHY & R ELBOW, STATES "I USUALLY USE DRUGS FOR THE PAIN," & GOES OUT TO SMOKE AFTER REPORTING PAIN. WHEN HE RETURNED HE WAS MEDICATED W/TORADOL PER ORDERS & PT ASKED "WHERES THE OXY?" WHEN REASSESSED PT HAD FALLIN ASLEEP. DENIES N/V OR DYSPNEA. VSS. HAS A DRY HACKING COUGH. R ELBOW IS SWOLLEN, TENDER/WARM TO TOUCH & RED W/AN OLD SURGICAL SCAR & 2 SCABS. PT HAS OTHER ABRASIONS ON BLE/BUE SCATTERED, INCLUDING MULTIPLE AMPUTATED TOES. STATES HE HASN'T TAKEN HIS MEDS IN THE LAST FEW WEEKS BECAUSE HE WASN'T ABLE TO "GET THEM" & REPORTS HE IS CURRENTLY SLEEPING @SOME [facility] HOUSE HE JUST MET & HAS NO FAMILY IN TOWN. CALL LIGHT IS IN REACH & I WILL CONT TO MONITOR UNTIL DAY SHIFT RN ASSUMES CARE.
[2019-04-15 05:55] LABS: Anion Gap 6 mmol/L (6-16); Blood Urea Nitrogen 26 mg/dL (8-24); Bun/Creatinine Ratio 30.6 (12.0-20.0); CO2, Blood 24 mmol/L (21-32); Calcium, Blood 8.5 mg/dL (8.5-10.1); Chloride, Blood 107 mmol/L (98-108); Creatinine, Blood 0.85 mg/dL (0.60-1.20); Glomerular Filtration Rate >60 (60-); Glucose, Blood 184 mg/dL (70-99); Sodium, Blood 137 mmol/L (136-145)
[2019-04-15 10:56] LABS: U Amphetamine Screen DETECTED; U Barbituate Screen DETECTED; U Benzodiazapine Screen Not Detected; U Buprenorphine Screen Not Detected; U Cannabinoids Screen DETECTED; U Cocaine Screen Not Detected; U Methadone Screen Not Detected; U Methamphetamine Screen DETECTED; U Opiates Screen Not Detected; U Oxycodone Screen Not Detected; U Phencyclidine Screen Not Detected; U Propoxyphene Screen Not Detected
--- NOTE | 2019-04-15 16:53 | NUR ---
SHIFT SUMMARY PT HAS HAD NO ACUTE CHANGES THIS SHIFT, MEDICATED 1X FOR PAIN, PT REQ TO DC IV TO SMOKE T/O SHIFT, HAD TO CALL SECURITY 2X TO LOCATE PT AFTER HE HAD BEEN OUTDSIDE +1HR 3X THIS SHIFT, THIS RN CONTINUES TO REMIND PT THAT HE NEEDS TO HAVE A QUICK SMOKE AND COME BACK THAT HE WILL BE DC'D IF WE HAVE TO CONTINUE LOOKING FOR HIM. PT HAS ASKED FOR IV TO BE REMOVED, STATES "I DON'T WANT IT", THIS RN EXPLAINED TO PT THAT HE IS HERE TO BE TREATED AND IV ANTIBIOTICS ARE INCLUDED IN [place]. HAVE ALSO CONTINUES TO EDUCATED PT ON PRESCRIBED DIET, PT CONTINES TO REQ EXTRA FOOD T/O SHIFT, STATES THAT BEFORE THIS ADMIT HE HAS "NOT ATE IN FOUR DAYS". PT IS BEDRESTING NOW, WILL CONT TO MONITOR UNTIL REPORT GIVEN TO NOC RN.
--- NOTE | 2019-04-15 19:09 | NUR ---
PT HAS BEEN OUTSIDE 1 1/2 HRS AND IS NOT BACK IN ROOM, CALLED DR ENGLE AND NOTIFIED. REPORT HAS BEEN GIVEN TO NOC RN TO ASSUME CARE
--- NOTE | 2019-04-15 20:37 | NUR ---
Pt returned to floor for IV antibiotic. VOiced pain in arm, Displayed an apparent inability to rully extend it. Rambled on in a semicoherent conversation. Call placed to MD for analgesic. Orders received - see MAR for details. Call light in reach
[2019-04-16 04:54] LABS: BASOPHILS ABSOLUTE AUTO 0.04 K/mm3 (0.00-0.23); BASOPHILS PERCENT AUTO 1 % (0-2); EOSINOPHILS ABSOLUTE AUTO 0.56 K/mm3 (0.00-0.68); EOSINOPHILS PERCENT AUTO 10 % (0-6); Hematocrit 35.3 % (37.0-53.0); Hemoglobin 11.2 g/dL (13.5-17.5); IMMATURE GRAN ABSOLUTE AUTO 0.01 K/mm3 (0.00-0.10); IMMATURE GRAN PERCENT AUTO 0 % (0-1); LYMPHOCYTES PERCENT AUTO 38 % (21-46); MONOCYTES ABSOLUTE AUTO 0.38 K/mm3 (0.16-1.47); MONOCYTES PERCENT AUTO 7 % (4-13); Mean Corpuscular HGB 27.7 pg (26.0-34.0); Mean Corpuscular HGB Conc 31.7 g/dL (31.5-36.5); Mean Corpuscular Volume 87 fL (80-100); Mean Platelet Volume 8.4 fL (9.1-12.4); NEUTROPHILS ABSOLUTE AUTO 2.45 K/mm3 (1.96-9.15); NEUTROPHILS PERCENT AUTO 44 % (41-73); Platelet Count 372 K/mm3 (150-400); RDW Coefficient Variation 14.7 % (11.7-14.2); RDW Standard Deviation 46.5 fL (35.1-46.3); Red Blood Cell Count 4.05 M/mm3 (4.30-5.90); White Blood Cell Count 5.54 K/mm3 (4.00-11.30)
--- NOTE | 2019-04-16 04:54 | NUR ---
COntinues to leave room to "go outside" at intervals, but returns for medications at times scheduled. Some talking at intervals in between bouts of sleeping. Although voiced feeling some depression, was able to joke and laugh with nurse, afffect seemed to improve. Call light in reach. COntact precautions encouraged.
[2019-04-16 05:15] LABS: Anion Gap 6 mmol/L (6-16); Blood Urea Nitrogen 27 mg/dL (8-24); Bun/Creatinine Ratio 30.1 (12.0-20.0); CO2, Blood 25 mmol/L (21-32); Calcium, Blood 8.3 mg/dL (8.5-10.1); Chloride, Blood 107 mmol/L (98-108); Glomerular Filtration Rate >60 (60-); Glucose, Blood 268 mg/dL (70-99); Potassium, Blood 4.3 mmol/L (3.5-5.5); Sodium, Blood 138 mmol/L (136-145)
--- NOTE | 2019-04-16 18:43 | NUR ---
PATIENT A.OX4, OUT OF ROOM FREQUENTLY TO SMOKE. NONCOMPLIANT WITH CARE AT TIMES. REFUSING TO SHOWER. WOUND TO R ELBOW CLEANSED WITH SOAP AND WATER. EXU DRY PLACED, WRAPPED WITH KERLIX AND MIYA WRAP. PATIENT CHANGED TO ROCEPHIN TODAY INSTEAD OF PCN G DUE TO THE SCHEDULING. DR CARMICHAEL CONSULTING. VSS, ON RA. ACHS BLOOD SUGARS, TOLERATING ADA DIET. CONTACT PRECAUTIONS DUE TO MRSA IN THE WOUND. UNKNOWN D/C PLAN, WILL REQUIRE 6 WEEKS ABX.
--- NOTE | 2019-04-17 02:57 | NUR ---
04/16/19 2030 PT OUTSIDE FOR 1 HOUR, PT COMPLIANT WITH WRITING DEPARTURE/RETURN TIMES ON NURSING BOARD IN ROOM AFTER REQUEST BY THIS NURSE (THIS NURSE ALSO REQUESTED PATIENT KEEP VISITS OUTSIDE TO LESS THAN 1 HOUR WITH PATIENT OK WITH THIS REQUEST), PT REFUSING TO REMOVE CLOTHES (STRONG BODY ODOR NOTED, CLOTHING IS SOILED), CONTACT PRECAUTIONS MAINTAINED, PT CALM AND POLITE DURING INTERACTIONS WITH NURSING STAFF.
--- NOTE | 2019-04-17 04:34 | NUR ---
SHIFT SUMMARY: 48 Y/O MALE HAD UNREMARKABLE NIGHT, PT C/O RIGHT ELBOW PAIN RATED 6/10 WITH TORADOL 30MG IVP X 1 AND ULTRAM 50MG PO X 1 GIVEN TWICE WITH RELIEF FELT, PT UP OUTSIDE FREQUENTLY TO SMOKE, PT REFUSING TO TAKE SHOWER WHEN OFFERED BY NURSING STAFF THIS SHIFT (STRONG BODY AND PERSONAL CLOTHES ODOR NOTED), DENIES NAUSEA, PTS RIGHT HAND CAPILLARY REFILL LESS THAN 3 SECONDS, BED LOW POSITION WITH CALL LIGHT AT SIDE, CONTACT PRECAUTIONS INTACT.
--- NOTE | 2019-04-17 15:49 | NUR ---
CALLED HOSPITALIST PT CAME BACK FROM A SMOKE BREAK STATING HE NOW FEELS HIS LEFT ARM IS SWOLLEN. UPON INSPECTION I DID NOT THE ELBOW AREA IS SWOLLEN, BUT NOT DISCOLORED. I DID INFORM THE HOSPITALIST OF THIS.
--- NOTE | 2019-04-17 16:08 | NUR ---
SHIFT SUMMARY HOMELESS. RT ELBOW CELLULITIS. BACK OF LEFT ELBOW IS SWOLLEN SUDDENLY TODAY, HOSPITALIST NOTIFIED, NO DISCOLORATION. CARE MANAGEMENT MANAGING A REFERAL FOR PLACEMENT IN A REHAB/HOUSING FACILITY LOCATED BY PT'S SISTER. AC CHEMSTICKS. TOADOL AND ULTRAM AVAILABLE FOR PAIN. HX: DM2, 7 TOES AMPUTATED, SCHIZOPHRENIA, ETOH, POSITIVE TOX SCREEN ON ADMIT. DRESSINGS ON RT ELBOW CHANGED TODAY. PT GOES OUTSIDE TO SMOKE.
--- NOTE | 2019-04-17 21:55 | NUR ---
PT UP TO GO OUTSIDE SMOKING EVERY 2 HOURS WITH PATIENT ADVISING STAFF UPON DEPARTURE/RETURN, RIGHT ELBOW DRESSING DRY AND INTACT.
[2019-04-18 04:03] LABS: BASOPHILS ABSOLUTE AUTO 0.07 K/mm3 (0.00-0.23); BASOPHILS PERCENT AUTO 1 % (0-2); EOSINOPHILS ABSOLUTE AUTO 0.64 K/mm3 (0.00-0.68); EOSINOPHILS PERCENT AUTO 9 % (0-6); Hematocrit 35.8 % (37.0-53.0); Hemoglobin 11.5 g/dL (13.5-17.5); IMMATURE GRAN ABSOLUTE AUTO 0.03 K/mm3 (0.00-0.10); IMMATURE GRAN PERCENT AUTO 0 % (0-1); LYMPHOCYTES ABSOLUTE AUTO 2.19 K/mm3 (0.84-5.20); LYMPHOCYTES PERCENT AUTO 31 % (21-46); MONOCYTES ABSOLUTE AUTO 0.52 K/mm3 (0.16-1.47); MONOCYTES PERCENT AUTO 7 % (4-13); Mean Corpuscular HGB 28.3 pg (26.0-34.0); Mean Corpuscular HGB Conc 32.1 g/dL (31.5-36.5); Mean Corpuscular Volume 88 fL (80-100); Mean Platelet Volume 8.8 fL (9.1-12.4); NEUTROPHILS PERCENT AUTO 52 % (41-73); Platelet Count 356 K/mm3 (150-400); RDW Coefficient Variation 14.8 % (11.7-14.2); RDW Standard Deviation 47.4 fL (35.1-46.3); Red Blood Cell Count 4.06 M/mm3 (4.30-5.90); White Blood Cell Count 7.15 K/mm3 (4.00-11.30)
--- NOTE | 2019-04-18 05:47 | NUR ---
SHIFT SUMMARY: 48 Y/O MALE HAD NO ISSUES ALL SHIFT, PT CONTINUES TO GO OUTSIDE AND SMOKE EVERY 2 HOURS AND THEN RETURNS TO ROOM, PT RIGHT ELBOW DRESSING DRY AND INTACT, LEFT ELBOW HAS OLD EDEMA AT SITE, ABLE TO DORSIFLEX EXTREMITY STRAIGHT AND BEND WITHOUT ISSUES, BEHAVIOR APPROPRIATE WITH ALL STAFF, REQUESTS TO EAT FREQUENT SNACKS FROM STAFF, C/O RIGHT ELBOW PAIN 5/10 WITH TORADOL 30MG IV X 1, TRAMADOL 50MG PO X 1 AND TYLENOL 650MG PO GIVEN WITH RELIEF FELT, PT DID SET UP ON TWO PILLOWS WITH HEAT THERAPY APPLIED THIS SHIFT, BED LOW POSITION WITH CALL LIGHT AT SIDE.
--- NOTE | 2019-04-18 17:22 | NUR ---
SHIFT SUMMARY CARE MANAGEMENT IS WORKING ON FINDING PLACEMENT FOR RECOMMENDED 3 WEEKS IV ANTIBIOTICS. PLAN IS TO DC ON ORALS IF NO PLACEMENT OBTAINED. PT GOES OUT TO SMOKE BUT IS OTHERWISE COMPLIANT WITH CARE OFFERED. HE ORDERS EXTRA FOOD AND SNACKS THROUGHOUT SHIFT. WE HAVE BEEN MEDICATING FOR PAIN WITH TORADOL AND ULTRAM
--- NOTE | 2019-04-19 04:22 | NUR ---
SHIFT SUMMARY: 48 Y/O MALE RESTED COMFORTABLY ALL SHIFT, PT OUTSIDE TO SMOKE OCCASIONALLY (DEPARTED AND RETURNED TO UNIT IN TIMELY MANNER), RIGHT ELBOW SITE HAS DECREASED EDEMA--NO DRAINAGE TO SITE (DRESSING CHANGED BY THIS NURSE), C/O RIGHT ELBOW PAIN RATED 6/10 WITH TORADOL 30MG IVP X 1 AND ULTRAM 50MG PO X 1 GIVEN WITH RELIEF FELT, BED LOW POSITION WITH CALL LIGHT AT SIDE.
--- NOTE | 2019-04-19 18:08 | NUR ---
SHIFT SUMMARY PT AWAITING HOPEFUL PLACEMENT. PT STATES FREQUENTLY HIS PAIN IS NOT CONTROLLED. HOWEVER HE SOON FALLS ASLEEP OR GOES OUT TO SMOKE AFTER STATING THAT. HE SHOWS NO OUTWARD SIGN OF PAIN. HE ASKS FOR FREQUENT SNACKS THROUGHOUT SHIFT. DRESSING ON RT ELBOW CHANGED TODAY
--- NOTE | 2019-04-19 20:21 | NUR ---
2000 PT UP OUTSIDE TO SMOKE AFTER ADVISING NURSING STAFF OF DEPARTURE, CALM AND COOPERATIVE, RIGHT ELBOW DRESSING DRY AND INTACT.
--- NOTE | 2019-04-20 04:10 | NUR ---
SHIFT SUMMARY: 48 Y/O MALE RESTED COMFORTABLY ALL SHIFT, CONTINUES TO WANDER OUTSIDE FREQUENTLY THIS SHIFT TO SMOKE (RETURNS IN TIMELY MANNER), DECLINES TO BATHE OR CHANGE CLOTHES WHICH HAVE BEEN WORN FOR PAST 4 DAYS, BEHAVIOR POLITE AND APPROPRIATE WITH ALL STAFF, C/O OCCASIONAL RIGHT ELBOW PAIN RATED 6/10 WITH TORADOL 30MG IVP X 1 AND ULTRAM 50MG PO X 1 GIVEN WITH RELIEF FELT, PT FLEXING AND EXTENDING RIGHT ELBOW (ENCOURAGED TO LET SIT REST WITH PATIENT TENDING TO IGNORE ADVICE), BED LOW POSITION WITH CALL LIGHT SIDE, CALL LIGHT AT SIDE.
--- NOTE | 2019-04-20 14:05 | NUR ---
PRIOR TO LUNCH BLOOD SUGAR CHECKED, TREATED PT w 5UNIT HUMALOG/MED S/S FOR CBG 201 HOWEVER MISUNDERSTOOD CBG IT WAS ACTUALLY 101. CBG RECHECKED, LOW @ 35, PT GIVEN OJ, GHISLAINE PUDDING & LUNCH, RECHECKED, CBG 157. DR SARKAR & REGIONAL OWNER OPERATOR TRUCK DRIVER JOSELUIS NOTIFIED. PT STATE UNDERSTANDING, STATE HE ALSO MISUDERSTOOD 201.
--- NOTE | 2019-04-20 15:53 | NUR ---
SUMMARY PT IS A/O X4, AMBULATES INDEPENDANTLY IN & OUT TO SMOKE. HE STATE CONTINUING R ELBOW PAIN, SITE CONTINUES SWOLLEN, WOUND CARE PROVIDED TODAY. STATE L ELBOW STARTED SWELLING YESTERDAY & IS ALSO PAINFUL, DR SARKAR NOTIFIED, ASSESS SITE ORDER US, +SVT. DR SARKAR RE-ORDER TORADOL Q12 FOR PAINRELIEF, STATE ALTERNATE W TRAMADOL. PT C/O CHR ACID REFLUX, PRN TUMS FOR RELIEF. VSS.
--- NOTE | 2019-04-20 22:45 | NUR ---
04/20/19 4120 PT OUT OF ROOM AGAIN TO SMOKE. RN HAVING DIFFICULT TIME ADMINISTERING HIS MEDS WHEN HE IS FREQUENTLY OUT SMOKING. HE DOES NOT LET RN KNOW WHEN HE IS GOING.
--- NOTE | 2019-04-21 03:53 | NUR ---
04/21/19 0350 WALKING OUTSIDE TO SMOKE. STEADY GAIT.
--- NOTE | 2019-04-21 07:30 | NUR ---
04/21/19 0645 MEDICATED FOR PAIN AGAIN. UNEVENFUL NIGHT.
[2019-04-21] MEDS ORDERED: Amoxicillin500 MG (11:30)
--- NOTE | 2019-04-21 12:00 | NUR ---
UNABLE TO MAKE APPT WITH PCP-OFFICE CLOSED UNTIL AFTER [address] CARMICHAEL DECLINED TO MAKE F/U APPT WITH PATIENT SAID PATIENT SHOULD FOLLOW UP WITH [facility]THO.
--- NOTE | 2019-04-21 13:52 | NUR ---
DISCHARGE PT IS A/O X4, IND. HE STATE CONTINUING PAIN R ELBOW, SITE CONTINUES SWOLLEN HOWEVER IMPROVING, NO DRAINAGE, INOCENCIA CHANGED THIS AM, ANTIBX OINT APPLIED. DR SARKAR IN TO SEE HIM, STATE OK FOR D/C HOME. PROVIDE ORDERS FOR ANTIBX & HARD COPY PAIN MED SCRIPT. ORDERS FAXED TO [facility]/REQUEST. LOAN APPROVER SET PT SO HE COULD SHOWER. HE CALLED SISTER FOR TRANSPORTATION HOME. IV D/C INTACT. D/C INSTRUCT PROVIDED. PT IS GENERALLY PLEASANT/APPRECIATIVE, CHOOSES TO AMBULATE FROM HOSP. F/U APPTS ARRANGED BY FACILITY MAINTENANCE MANAGER.
== END 2019-04-21 13:50 | disposition home or self-care (01) | DRG 558 ==
LOC: ER 20:24 → MEDS 04-15 02:24 → ENPENDDIS 04-21 11:14 → MEDS 04-21 13:50
PROVIDERS: Internal Medicine; Nurse Practitioner Acute Care; Orthopaedic Surgery; Physician Assistant; ADMIT Family Medicine
DX: M71.121 Other infective bursitis, right elbow (principal); M00.821 Arthritis due to other bacteria, right elbow; M86.9 Osteomyelitis, unspecified; M71.021 Abscess of bursa, right elbow; S52.021A Displaced fracture of olecranon process without intraarticular extension of right ulna, initial encounter for closed fracture; Z59.0 Homelessness; J44.9 Chronic obstructive pulmonary disease, unspecified; I25.10 Atherosclerotic heart disease of native coronary artery without angina pectoris; F20.9 Schizophrenia, unspecified; Z79.4 Long term (current) use of insulin; E11.69 Type 2 diabetes mellitus with other specified complication; F17.210 Nicotine dependence, cigarettes, uncomplicated; Z91.14 Patient's other noncompliance with medication regimen
CPT/HCPCS: 36415; 73201; 80048; 80053; 82947; 85025; 85027; 85651; 86140; 93971; 94760; 96361; 96374; 99285-25; A9270; G0480; J0696; J1885; J2405; J2540; J7030; Q9967

== ENCOUNTER 2019-05-28 19:43 | Emergency (ER) | payer OTHER ==
[~2019-05-28] VITALS: Ht 177.8 cm; Wt 74.8 kg
[~2019-05-28 19:43] MED LIST changes: +Amoxicillin500 MG
[2019-05-28] MEDS ORDERED: KETO10 PO (22:13)
[2019-05-28] MEDS ORDERED: ACETAMINOPHEN500 MG PO (22:13)
[2019-05-29] MEDS ORDERED: Augmentin 875-1 EACH PO (22:01)
== END 2019-05-28 22:32 | disposition home or self-care (01) ==
LOC: ER 19:43
DX: S02.32XA Fracture of orbital floor, left side, initial encounter for closed fracture (principal); S02.19XA Other fracture of base of skull, initial encounter for closed fracture; E11.9 Type 2 diabetes mellitus without complications; I25.2 Old myocardial infarction; Z79.899 Other long term (current) drug therapy; F17.210 Nicotine dependence, cigarettes, uncomplicated; X58.XXXA Exposure to other specified factors, initial encounter
CPT/HCPCS: 70486; 99283-25

== ENCOUNTER 2019-05-29 16:07 | Emergency (ER) | payer OTHER ==
[~2019-05-29] VITALS: Ht 180.3 cm; Wt 72.6 kg
[~2019-05-29 16:07] MED LIST changes: +ACETAMINOPHEN500 MG PO
[2019-05-29] MEDS ORDERED: Augmentin 875-1 EACH PO (22:01)
== END 2019-05-29 22:36 | disposition home or self-care (01) ==
LOC: ER 16:07
DX: S02.40DA Maxillary fracture, left side, initial encounter for closed fracture (principal); S02.32XA Fracture of orbital floor, left side, initial encounter for closed fracture; I10 Essential (primary) hypertension; E11.42 Type 2 diabetes mellitus with diabetic polyneuropathy; I25.10 Atherosclerotic heart disease of native coronary artery without angina pectoris; I25.2 Old myocardial infarction; J44.9 Chronic obstructive pulmonary disease, unspecified; K21.9 Gastro-esophageal reflux disease without esophagitis; F20.9 Schizophrenia, unspecified; F31.9 Bipolar disorder, unspecified; F17.210 Nicotine dependence, cigarettes, uncomplicated; Z79.899 Other long term (current) drug therapy; Z79.84 Long term (current) use of oral hypoglycemic drugs; Z79.82 Long term (current) use of aspirin; X58.XXXA Exposure to other specified factors, initial encounter
CPT/HCPCS: 70450; 70486; 99284-25; A9270

== ENCOUNTER 2019-06-19 00:45 | Emergency (ER) | payer OTHER ==
[~2019-06-19] VITALS: Ht 177.8 cm; Wt 70.3 kg
[~2019-06-19 00:45] MED LIST changes: +Augmentin 875-1 EACH PO
[2019-06-19 05:04] LABS: BASOPHILS ABSOLUTE AUTO 0.04 K/mm3 (0.00-0.23); BASOPHILS PERCENT AUTO 1 % (0-2); EOSINOPHILS ABSOLUTE AUTO 0.29 K/mm3 (0.00-0.68); EOSINOPHILS PERCENT AUTO 3 % (0-6); Hematocrit 43.5 % (37.0-53.0); Hemoglobin 13.9 g/dL (13.5-17.5); IMMATURE GRAN ABSOLUTE AUTO 0.02 K/mm3 (0.00-0.10); IMMATURE GRAN PERCENT AUTO 0 % (0-1); LYMPHOCYTES ABSOLUTE AUTO 2.01 K/mm3 (0.84-5.20); LYMPHOCYTES PERCENT AUTO 24 % (21-46); MONOCYTES ABSOLUTE AUTO 0.59 K/mm3 (0.16-1.47); MONOCYTES PERCENT AUTO 7 % (4-13); Mean Corpuscular HGB 27.6 pg (26.0-34.0); Mean Corpuscular Volume 87 fL (80-100); Mean Platelet Volume 8.8 fL (9.1-12.4); NEUTROPHILS PERCENT AUTO 66 % (41-73); Platelet Count 388 K/mm3 (150-400); RDW Coefficient Variation 15.4 % (11.7-14.2); RDW Standard Deviation 49.1 fL (35.1-46.3); Red Blood Cell Count 5.03 M/mm3 (4.30-5.90); White Blood Cell Count 8.55 K/mm3 (4.00-11.30)
[2019-06-19 05:18] LABS: Anion Gap 4 mmol/L (6-16); Blood Urea Nitrogen 22 mg/dL (8-24); Bun/Creatinine Ratio 26.3 (12.0-20.0); CO2, Blood 30 mmol/L (21-32); Calcium, Blood 8.9 mg/dL (8.5-10.1); Chloride, Blood 103 mmol/L (98-108); Creatinine, Blood 0.84 mg/dL (0.60-1.20); Glomerular Filtration Rate >60 (60-); Glucose, Blood 299 mg/dL (70-99); Potassium, Blood 4.4 mmol/L (3.5-5.5); Sodium, Blood 137 mmol/L (136-145)
[2019-06-19] MEDS ORDERED: Cleocin HCl300 MG PO (06:07)
== END 2019-06-19 09:09 | disposition home or self-care (01) ==
LOC: ER 00:45
PROVIDERS: Emergency Medicine
DX: E11.621 Type 2 diabetes mellitus with foot ulcer (principal); L97.519 Non-pressure chronic ulcer of other part of right foot with unspecified severity; E11.65 Type 2 diabetes mellitus with hyperglycemia; L08.9 Local infection of the skin and subcutaneous tissue, unspecified; F31.9 Bipolar disorder, unspecified; I25.10 Atherosclerotic heart disease of native coronary artery without angina pectoris; I25.2 Old myocardial infarction; F20.9 Schizophrenia, unspecified; Z79.82 Long term (current) use of aspirin; Z79.899 Other long term (current) drug therapy; J44.9 Chronic obstructive pulmonary disease, unspecified; F43.10 Post-traumatic stress disorder, unspecified; E11.42 Type 2 diabetes mellitus with diabetic polyneuropathy; F17.210 Nicotine dependence, cigarettes, uncomplicated
CPT/HCPCS: 36415; 73701; 80048; 84145; 85025; 96365-59; 96366; 99284-25; J3370; Q9967